=== PATIENT | female | born 1995 | race Caucasian/White ===

== ENCOUNTER → 2020-06-05 | Outpatient (CLI) | payer BC, SELFPAY ==
[2020-06-05 09:25] VITALS: BMI 24.1
[2020-06-05 17:30] LABS: Amphetamine Urine VISTA NEGATIVE (<1000 ng/mL); Barbiturate Urine VISTA NEGATIVE (< 200 ng/mL); Benzodiazepine Urine VISTA NEGATIVE (< 200 ng/mL); Cocaine Urine VISTA NEGATIVE (< 300 ng/mL); Ecstacy Urine VISTA NEGATIVE (< 500 ng/mL); Methadone Urine VISTA NEGATIVE (< 300 ng/mL); PCP Urine VISTA NEGATIVE (< 25 ng/mL); THC Urine VISTA NEGATIVE (< 50 ng/mL); Vista UDS pH Range 6
[2020-06-09 20:07] LABS: Chlamydia By Nucleic Acid AMP Negative (Negative)
[2020-06-09 20:13] LABS: Gonococcus By Nucleic Acid AMP Negative (Negative)
== END | disposition home or self-care (01) ==
LOC: LABSPEC 17:02
PROVIDERS: PCP Internal Medicine; Visit Provider Obstetrics & Gynecology
DX: Z34.90 Encounter for supervision of normal pregnancy, unspecified, unspecified trimester (principal)
CPT/HCPCS: 80307; 87086; 87491; 87591

== ENCOUNTER → 2020-06-10 | Outpatient (CLI) | payer BC, SELFPAY ==
[2020-06-05 09:25] VITALS: BMI 24.1
[2020-06-10 16:07] LABS: Absolute Neutrophil Count 5.2 X10^3/uL (2.0-7.7); Basophil# 0.02 X10^3/uL; Basophil% 0.3 % (0-1); Eosinophil# 0.12 X10^3/uL; Eosinophils% 1.6 % (0-5); Hemoglobin 12.5 g/dL (12.0-15.0); Lymphocyte % 20.4 % (19-41); Mean Corp Hgb Conc 32.9 g/dL (32-36); Mean Corpuscular Hgb 30.3 pg (27.0-32.0); Mean Platelet Vol. 9.5 fl (6.2-12.0); Monocyte% 6.8 % (0-10); NRBC Flagged by Analyzer 0 % (0-5); Neutrophil # 5.18 X10^3/uL (2.7-7.7); Neutrophil % 70.6 % (47-70); Platelet Count 299 K/mm3 (150-450); Red Blood Count 4.13 M/mm3 (4.2-5.4); White Blood Count 7.3 K/mm3 (4.4-11.0)
[2020-06-10 17:04] LABS: NATERA MAILED SPECIMEN
[2020-06-11 08:54] LABS: HIV - WCH Non-Reactive (Nonreactive); Hepatitis B Surface Antigen Non-Reactive (Nonreactive); Hepatitis C Antibody Non-Reactive (Nonreactive); Rubella IgG 74.5 IU/mL
[2020-06-12 03:03] LABS: Rapid Plasmin Reagin (RPR) NONREACTIVE (NONREACTIVE)
== END | disposition home or self-care (01) ==
PROVIDERS: PCP Internal Medicine; Referring Provider Obstetrics & Gynecology; Visit Provider Obstetrics & Gynecology
DX: Z34.81 Encounter for supervision of other normal pregnancy, first trimester (principal); Z31.430 Encounter of female for testing for genetic disease carrier status for procreative management
CPT/HCPCS: 36415; 85025; 86592; 86703; 86762; 86803; 86850; 86900; 86901; 87340

== ENCOUNTER → 2020-10-22 16:11 | Outpatient (CLI) | payer BC, SELFPAY ==
[2020-10-22 15:55] VITALS: BMI 27.6
[2020-10-22 16:54] LABS: Absolute Lymphocyte Count 1.53 X10^3/uL (0.83-4.51); Absolute Neutrophil Count 7.9 X10^3/uL (2.0-7.7); Basophil# 0.03 X10^3/uL; Basophil% 0.3 % (0-1); Eosinophil# 0.09 X10^3/uL; Eosinophils% 0.9 % (0-5); Hematocrit 35.1 % (37-47); Hemoglobin 11.1 g/dL (12.0-15.0); Lymphocyte # 1.53 X10^3/ul (4.0); Lymphocyte % 14.9 % (19-41); Mean Corp Hgb Conc 31.6 g/dL (32-36); Mean Corpuscular Hgb 29.8 pg (27.0-32.0); Mean Corpuscular Volume 94.4 fL (81-99); Mean Platelet Vol. 8.7 fl (6.2-12.0); Monocyte# 0.68 X10^3/uL; Monocyte% 6.6 % (0-10); NRBC Flagged by Analyzer 0 % (0-5); Neutrophil # 7.91 X10^3/uL (2.7-7.7); Neutrophil % 76.9 % (47-70); Platelet Count 293 K/mm3 (150-450); RBC Distribution Width SD 44.2 fl (35.1-43.9); Red Blood Count 3.72 M/mm3 (4.2-5.4); White Blood Count 10.3 K/mm3 (4.4-11.0)
[2020-10-22 17:16] LABS: Glucose Challenge Gest 1H 50g 129 mg/dL (70-140)
== END ==
PROVIDERS: PCP Internal Medicine; Referring Provider Obstetrics & Gynecology; Visit Provider Obstetrics & Gynecology
DX: Z34.90 Encounter for supervision of normal pregnancy, unspecified, unspecified trimester (principal)
CPT/HCPCS: 36415; 82950; 85025

== ENCOUNTER → 2020-12-11 | Outpatient (CLI) | payer BC, SELFPAY ==
[2020-12-11 15:51] VITALS: BMI 28.9
== END | disposition home or self-care (01) ==
LOC: LABSPEC 16:42
PROVIDERS: PCP Internal Medicine; Visit Provider Obstetrics & Gynecology
DX: Z34.90 Encounter for supervision of normal pregnancy, unspecified, unspecified trimester (principal)
CPT/HCPCS: 87081

== ENCOUNTER 2020-12-28 05:20 | Inpatient (IN) | payer BC, SELFPAY ==
[2020-12-26 16:02] VITALS: BMI 28.9
[2020-12-28] VITALS (17 sets, daily range): BP systolic 103–118; BP diastolic 51–68; PULSE 57–182; RESP 14–18; TEMP 36.4–36.8; O2SAT 89–100; BMI 28.9
[2020-12-28] MEDS: Oxytocin 10 UNITS/ML Vial IM (05:47)
--- NOTE | 2020-12-28 05:59 | HP.PCM.OB_ITS ---
HPI - General General Date of Admission: 12/28/20 HPI Narrative DELISA NGUYEN, is a 25 F G3, P2 at 39 weeks gestation who presents in active labor. Patient was completely dilated on arrival [facility] Medical History (Updated 12/28/20 @ 06:[address] Nkechi Delgado MD) No significant medical problems Home Medications multivitamin no.47-iron fum 27 mg-folate no.1 1 mg-dha 300 mg capsule cap PO 05/27/20 [History Last Taken Unknown] Allergy/AdvReac Type Severity Reaction Status Date / Time No Known Allergies Allergy Verified 12/26/20 16:01 Family History Grandfather Colon cancer Surgical History S/P appendectomy Social History adopted: No household members: family housing: house number of children: 2 current occupational status: employed current occupation: [email or web address] pets and animals: Yes Smoking Status: Never smoker second hand exposure: No alcohol intake: current details: not while substance use type: does not use seatbelt use: always do you feel safe at home: Yes additional social history: - Wyatt Mcdaniel History 3 Elective abortions Hx Para 2 Spontaneous abortions Hx # Term Pregnancies Ectopic pregnancies Hx # Pregnancies Multiple births # of living children 2 Past Pregnancies Del. Date Name GA/Weeks Outcome Route Bth Weight Gen Labor Lgth Anesthesia Del Locatn Provider FOB 05/27/16 Thomas 39 live - full term 8lbs 9ozz Male over 24 hours epidural [facility] Wyatt 03/10/18 Bety 39 live - full term 7lbs 4oz Female 2 ho urs epidural [facility] Delivery Date: 05/27/16 no complications Saida Castorena Delivery Date: 03/10/18 no complications Saida Castorena Visit Details Expected Delivery Route/Plan Labor Preferences- CB/BF classes: no labor support person: Wyatt labor intervention preferences: shower, tub, ok with baby meds pain management options preferred: desires natural labor (had epidural with last 2 but did not work with last labor) cut cord/dad catch: cord, patient possibly wants to help : yes PP control planned: no discussed possible routes of delivery and associated risks: discussed possible delivery modalities and possible indications for each including R/B/A of , VAVD, FAVD, and CS. questions answered. special requests: no episiotomy unless absolutely necessary (had with last 2 deliveries) Plans flu vaccine: declined tdap vaccine: [] rhogam: [] LARC form signed: [] Problem list reviewed and updated with the most current plan of care details and appropriate orders placed. Relevant counseling for the gestational age provided. Continue routine care and follow up unless otherwise noted in visit notes/problem list details OB Flowsheet Initial Weight: 125 lb Date -?-?-?-?-?-?-?-?-?-?-?-?- EGA Weight BP Urine Prot -?-?-?-?-?-?-?-?-?-?-?-?- Glucose FHR FuHt Pres Dilation -?-?-?-?-?-?-?-?-?-?-?-?- Effaced St Visit Note 06/05/20 -?-?-?-?-?-?-?-?-?-?-?-?- 9w 4d 128 lb (+3 lb) 120/70 -?-?-?-?-?-?-?-?-?-?-?-?- -?-?-?-?-?-?-?-?-?-?-?-?- SM- CRL 2.5cm fh t 175 cons with lmp 07/02/20 -?-?-?-?-?-?-?-?-?-?-?-?- 13w 3d 129 lb 8 oz (+4 lb 8 oz) 118/60 Negative -?-?-?-?-?-?-?-?-?-?-?-?- Negative 150 -?-?-?-?-?-?-?-?-?-?-?-?- GP - no cramping or bleeding. Feeling flutters of movement. Anatomy scan ordered. Reviewed genetic testing - normal. 07/30/20 -?-?-?-?-?-?-?-?-?-?-?-?- 17w 3d 134 lb 8 oz (+9 lb 8 oz) 118/60 Negative -?-?-?-?-?-?-?-?-?-?-?-?- Negative 140 -?-?-?-?-?-?-?-?-?-?-?-?- GP - no cramping , LOF, VB. +FM. Anatomy scan scheduled. 08/29/20 -?-?-?-?-?-?-?-?-?-?-?-?- 21w 5d 139 lb 8 oz (+14 lb 8 oz) 110/60 Negative -?-?-?-?-?-?-?-?-?-?-?-?- Negative 135 21 -?-?-?-?-?-?-?-?-?-?-?-?- GP - No LOF, VB, DFM, ctx. Had appendectomy done in [place] a couple weeks ago. Recovery going well. Anatomy scan reviewed and normal. 10/09/20 -?-?-?-?-?-?-?-?-?-?-?-?- 27w 4d 147 lb 6 oz (+22 lb 6 oz) 130/68 Negative -?-?-?-?-?-?-?-?-?-?-?-?- Negative 140 28 -?-?-?-?-?-?-?-?-?-?-?-?- SM- no vb lof go od fm no regular ctx 10/22/20 -?-?-?-?-?-?-?-?-?-?-?-?- 29w 3d 146 lb 4 oz (+21 lb 4 oz) 130/76 Negative -?-?-?-?-?-?-?-?-?-?-?-?- Negative 135 29 -?-?-?-?-?-?-?-?-?-?-?-?- GP - no LOF, VB, DFM, ctx. Getting labs drawn after visit. 11/07/20 -?-?-?-?-?-?-?-?-?-?-?-?- 31w 5d 149 lb 6 oz (+24 lb 6 oz) 120/60 Negative -?-?-?-?-?-?-?-?-?-?-?-?- Negative 130 31 -?-?-?-?-?-?-?-?-?-?-?-?- GP - no LOF, VB, DFM, ctx. Getting chicken coop ready this weekend because she is getting chicks next week. 11/20/20 -?-?-?--?-?-?-?-?-?-?-?-?- 33w 4d 150 lb 2 oz (+25 lb 2 oz) 120/70 Negative -?-?-?-?-?-?-?-?-?-?-?-?- Negative 120 33 -?-?-?-?-?-?-?-?-?-?-?-?- GP - no LOF, VB, DFM, ctx. Discussed labor preferences and routes of delivery. 12/05/20 -?-?-?-?-?-?-?-?-?-?-?-?- 35w 5d 150 lb 6 oz (+25 lb 6 oz) 118/74 Negative -?-?-?-?-?-?-?-?-?-?-?-?- Negative 130 35 -?-?-?-?-?-?-?-?-?-?-?-?- GP - no LOF, VB, DFM, ctx. Denies complaints. 12/11/20 -?-?-?-?-?-?-?-?-?-?-?-?- 36w 4d 153 lb (+28 lb) 132/66 Negative -?-?-?-?-?-?-?-?-?-?-?-?- Negative 130 36 Cephalic -?-?-?-?-?-?-?-?-?-?-?-?- SM- no vb lof go od fm n oregular ctx gbs collected 12/19/20 -?-?-?-?-?-?-?-?-?-?-?-?- 37w 5d 153 lb (+28 lb) 98/64 Negative -?-?-?-?-?-?-?-?-?-?-?-?- Negative 120 30 Cephalic 1 -?-?-?-?-?-?-?-?-?-?-?-?- 50 -2 GP - no LO F, VB, DFM, ctx. Denies complaints. 12/26/20 -?-?-?-?-?-?-?-?-?-?-?-?- 38w 5d 153 lb 2 oz (+28 lb 2 oz) 130/78 Negative -?-?-?-?-?-?-?-?-?-?-?-?- Negative 125 38 Cephalic 1 -?-?-?-?-?-?-?-?-?-?-?-?- 50 -2 GP - no LO F, VB, dFM, ctx. Sister is graduating with Masters in Social work this weekend and they are having a alliance party. 12/28/20 -?-?-?-?-?-?-?-?-?-?-?-?- 39w 0d 153 lb (+28 lb) 118/56 111/66 -?-?-?-?-?-?-?-?-?-?-?-?- -?-?-?-?-?-?-?-?-?-?-?-?- GP -admitted in active labor NST FHR Rate Baby A Baseline: 120 Variability:: Moderate Accelerations:: 15 x 15 Decelerations:: Variable FHR Category:: Category II Uterine Activity:: q2 min ROS Eyes Eyes: Reports systems reviewed and no addt'l complaints, except as documented ENT HEENT: Reports systems reviewed and no addt'l complaints, except as documented Cardiovascular Cardiovascular: Reports systems reviewed and no addt'l complaints, except as documented Respiratory/Chest Respiratory/Chest: Reports systems reviewed and no addt'l complaints, except as documented Gastrointestinal Gastrointestinal: Reports systems reviewed and no addt'l complaints, except as documented Genitourinary Genitourinary: Reports systems reviewed and no addt'l complaints, except as documented Musculoskeletal Musculoskeletal: Reports systems reviewed and no addt'l complaints, except as documented Integumentary Integumentary: Reports systems reviewed and no addt'l complaints, except as documented Neurologic Neurologic: Reports systems reviewed and no addt'l complaints, except as documented Psychiatric Psychiatric: Reports systems reviewed and no addt'l complaints, except as documented Endocrine Endocrinology: Reports systems reviewed and no addt'l complaints, except as documented Hematologic/Lymphatic Hematologic/Lymphatic: Reports systems reviewed and no addt'l complaints, except as documented Allergic/Immunologic Allergic/Immunologic: Reports systems reviewed and no addt'l complaints, except as documented Vital Signs Vital Signs Vital Signs: 12/28/20 05:31 12/28/20 05:45 Pulse Rate 106 H 100 Blood Pressure 118/56 L BP Systolic 118 BP Diastolic 56 Pulse Ox 99 Physical Exam Const alert, oriented x3, no apparent distress, average body habitus, healthy appearing and well nourished HEENT normocephalic and moist oral mucous membranes Head and Scalp: atraumatic Eyes PERRL and EOMs intact bilaterally Neck full ROM Resp normal respiratory effort, no retractions and no use of accessory muscles Cardio regular rate and regular rhythm GI soft to palpation, non-tender and non-distended OB / External & Speculum: external exam normal, and vaginal bleeding; Negative for bleeding Manual OB Exam: dilated 10, effaced 100 and station +2 Extremity normal to inspection and full ROM Skin no rashes or lesions noted Neuro no focal motor deficits and no sensory deficits noted Psych mental status grossly normal, affect normal, speech normal and activity/motor behavior normal Assessment & Plan (1) Active labor: PLAN: Patient presents IAL, plan expectant management for , pitocin if needed. Pain management: complete on dilation - unable to receive epidural. GBS .negative Management of any complications: none I have reviewed the [facility] and made any clinically relevant updates. (2) Supervision of other normal : COMMENT: PRR JAIME 01/04/21 Girl! PC: Bety Thomas Spouse: Wyatt (3) : QUALIFIERS: Weeks of gestation: 38 weeks Qualified Code(s): Z3A.38 - 38 weeks gestation of COMMENT: genetic- low risk female and carrier- neg . Declined NTD, anatomy nl
--- NOTE | 2020-12-28 06:04 | EX.PCM.OBRPT ---
Assessment & Plan (1) Active labor: (2) Supervision of other normal : COMMENT: PRR JAIME 01/04/21 Girl! PC: Bety Thomas Spouse: Wyatt (3) : QUALIFIERS: Weeks of gestation: 38 weeks Qualified Code(s): Z3A.38 - 38 weeks gestation of COMMENT: genetic- low risk female and carrier- neg . Declined NTD, anatomy nl (4) (spontaneous vaginal delivery): Maternal Data Information JAIME Calculator Estimated Delivery Date Method Current WG Current Estimate 01/04/21 LMP (Certain) 39w 0d Other Estimates 01/05/21 Ultrasound #1 38w 6d Vaginal Delivery Maternal Presentation Maternal Presentation: Active Labor Maternal Presentation: 25-year-old G3, P2 at 39 weeks gestation admitted in active labor. Patient presented completely dilated feeling the urge to push. Operative Information Date of Procedure: 12/28/20 Pre-Operative Diagnosis: Term , active labor, precipitous delivery Post-Operative Diagnosis: Same Surgery / Procedure Performed: Spontaneous Vaginal Delivery Type of Anesthesia: Local with 1% Lidocaine Estimated Blood Loss: 250 Findings Description of Procedure: Patient began pushing and delivered the head in the DAGOBERTO presentation. The head was delivered atraumatically and a loose cord was noted around the body and delivered through. The anterior and posterior shoulders delivered without complication followed by the rest of the and the infant was placed on the maternal abdomen. Delayed cord clamping was employed for approximately 60 seconds. Cord was clamped and cut and gentle traction was applied to the cord and the placenta delivered spontaneously immediately following it was noted to be intact with three-vessel cord. The perineum and vagina were inspected and a midline second-degree perineal laceration was noted and repaired in the standard fashion using 3-0 Vicryl Rapide suture. EBL was 250 cc. Patient and infant tolerated delivery well. Presentation: Vertex and DAGOBERTO Amniotic Membrane Rupture Type: Spontaneous Amniotic Fluid Description: Clear Cord Vessel Description: 3 Vessels Cord Entanglement: None A Gender: Female (1 minute): 9 (5 minute): 9 Delayed Cord Clamping: Yes Post Vaginal Delivery Medications Given After Delivery: - (IM pitocin) Episiotomy Description: None Laceration: Midline, Perineal Extension/lac and 2nd degree Complication Complications: None Admit VTE Documentation VTE Present on Admission: No VTE Mechan Device Prophylaxis: SCD's VTE Pharm Prophylaxis Ordered: No Multi Select Codes Urinary/Genital Urinary/Genital CPT Codes: 49527 Vaginal Delivery [facility]
[2020-12-28] MEDS: Oxytocin 30 units/NS 500 ml 30 UNITS/500 ML IV.SOLN 334 UNITS IV (06:09)
[2020-12-28 06:21] LABS: Absolute Lymphocyte Count 1.04 X10^3/uL (0.83-4.51); Absolute Neutrophil Count 11.9 X10^3/uL (2.0-7.7); Basophil# 0.02 X10^3/uL; Basophil% 0.1 % (0-1); Eosinophil# 0.02 X10^3/uL; Eosinophils% 0.1 % (0-5); Hematocrit 36.2 % (37-47); Hemoglobin 11.3 g/dL (12.0-15.0); Lymphocyte # 1.04 X10^3/ul (0.83-4.51); Lymphocyte % 7.7 % (19-41); Mean Corp Hgb Conc 31.2 g/dL (32-36); Mean Corpuscular Hgb 27.5 pg (27.0-32.0); Mean Corpuscular Volume 88.1 fL (81-99); Mean Platelet Vol. 9.1 fl (6.2-12.0); Monocyte# 0.48 X10^3/uL; Monocyte% 3.5 % (0-10); NRBC Flagged by Analyzer 0 % (0-5); Neutrophil # 11.91 X10^3/uL (2.7-7.7); Platelet Count 281 K/mm3 (150-450); RBC Distribution Width CV 13.4 % (11.6-14.6); RBC Distribution Width SD 43.5 fl (35.1-43.9); Red Blood Count 4.11 M/mm3 (4.2-5.4); White Blood Count 13.6 K/mm3 (4.4-11.0)
[2020-12-28] MEDS: Naproxen 250 MG Tablet 500 MG PO ×3 (06:52→23:35)
[2020-12-29 04:07] VITALS: BP 112/55; PULSE 76; RESP 16; TEMP 36.6; O2SAT 98
[2020-12-29 07:24] VITALS: BP 101/68; PULSE 81; RESP 16; TEMP 36.3; O2SAT 97
--- NOTE | 2020-12-29 08:09 | PCM.PN.OB ---
Subjective Subjective: Patient doing well without complaints. Tolerating PO. Ambulating and voiding without difficulty. Breast feeding well. Denies chest pain, shortness of breath, calf pain/swelling, fevers, chills, lightheadedness. Objective Data Objective Data Vital Signs: Vital Signs Temp Pulse Resp BP Pulse Ox 97.3 F L 81 16 101/68 97 12/29/20 07:24 12/29/20 07:24 12/29/20 07:24 12/29/20 07:24 12/29/20 07:24 Oxygen Delivery Method Room Air Weight: 153 lb Body Mass Index (BMI) 28.9 Intake & Output: Intake and Output for Last 24 Hours 12/27/20 12/28/20 12/29/20 23:59 23:59 23:59 Intake Total 500.00 / 500.00 Output Total 250 / 250 Balance 250.00 / 250.00 Lab / Micro Data Result Diagrams: 12/28/20 06:07 ROS Constitutional Constitutional: Denies fever(s) Cardiovascular Cardiovascular: Denies chest pain, dyspnea or lightheadedness Gastrointestinal Gastrointestinal: Reports abdominal pain; Denies constipation or diarrhea Neurologic Neurologic: Denies dizziness or headache(s) Physical Exam Const alert, oriented x3, no apparent distress, average body habitus, healthy appearing and well nourished HEENT normocephalic Head and Scalp: atraumatic Eyes PERRL and EOMs intact bilaterally Neck full ROM Lymph Lymphatic: no lymphadenopathy noted Resp normal respiratory effort, no retractions and no use of accessory muscles Cardio regular rate GI soft to palpation, non-tender and non-distended Palpation: other Other Details: fundus firm Extremity normal to inspection and no clubbing, cyanosis or edema Skin no rashes or lesions noted Neuro no focal motor deficits and no sensory deficits noted Psych mental status grossly normal, affect normal and speech normal Assessment & Plan (1) (spontaneous vaginal delivery): PLAN: s/p PPD # 1 1. routine post delivery care 2. breast feeding- support given 3. rh positive 4. rubella immune
--- NOTE | 2020-12-29 08:10 | PCM.DC ---
Discharge Instructions Diet Discharge Diet: No restrictions Activity Discharge Activity: Return to Normal Activity, May not drive while taking narcotic pain medications. and May Shower May resume sexual activity in: 4-6 weeks Dressing / Incision Call your doctor if your incision/area has: Continuous Slow Oozing, Sudden Increased Bleeding, Increased Pain/ Swelling, Increased Redness and Foul Smelling Discharge Follow Up Care Please Follow Up With: Nkechi Delgado MD When: Call to make an appointment with your doctor in 6 weeks. Test Results: Test results from this visit will be discussed in further detail at your follow-up appointment, if applicable. Discharge Plan Admission Admit Date/Time: 12/28/20 05:20 Attending Provider: Nkechi Delgado Primary Care Provider: Martinez Cox Discharge Orders/Prescriptions Prescriptions: New acetaminophen 500 mg Tablet 1,000 mg PO Q8H PRN PRN (Reason: Pain Score 1-3) Qty: 0 RF: 0 naproxen 250 MG tablet 250 - 500 mg PO Q8H PRN PRN (Reason: MILD PAIN) Qty: 30 RF: 1 Continued PNV-DHA 27 mg iron-1 mg -300 mg capsule 1 cap PO DAILY RF: 0 Referrals / Follow Up: Martinez Cox MD [Primary Care Provider] - Disposition Disposition (needs filled in before D/C Order can be placed): Home, self care
== END 2020-12-29 11:05 | disposition home or self-care (01) | DRG 807 ==
PROVIDERS: Admitting Provider Obstetrics & Gynecology; PCP Internal Medicine; Visit Provider Obstetrics & Gynecology
DX: O69.81X0 Labor and delivery complicated by cord around neck, without compression, not applicable or unspecified (principal); Z37.0 Single live birth; O70.1 Second degree perineal laceration during delivery; Z3A.39 39 weeks gestation of pregnancy
CPT/HCPCS: 59050; 85025; 86850; 86900; 86901; 99218; G0378

== ENCOUNTER → 2022-04-21 | Outpatient (CLI) | payer SELFPAY ==
[2022-04-21 16:21] LABS: Amphetamine Urine VISTA NEGATIVE (<1000 ng/mL); Barbiturate Urine VISTA NEGATIVE (< 200 ng/mL); Benzodiazepine Urine VISTA NEGATIVE (< 200 ng/mL); Cocaine Urine VISTA NEGATIVE (< 300 ng/mL); Ecstacy Urine VISTA NEGATIVE (< 500 ng/mL); Methadone Urine VISTA NEGATIVE (< 300 ng/mL); PCP Urine VISTA NEGATIVE (< 25 ng/mL); THC Urine VISTA NEGATIVE (< 50 ng/mL); Vista UDS pH Range 5
[2022-04-23 22:06] LABS: Chlamydia By Nucleic Acid AMP Negative (Negative)
[2022-04-25 14:22] LABS: Gonococcus By Nucleic Acid AMP Negative (Negative)
== END | disposition home or self-care (01) ==
LOC: LABSPEC 15:38
PROVIDERS: PCP Internal Medicine; Visit Provider Obstetrics & Gynecology
DX: Z34.90 Encounter for supervision of normal pregnancy, unspecified, unspecified trimester (principal)
CPT/HCPCS: 80307; 87086; 87088; 87491; 87591

== ENCOUNTER → 2022-06-14 | Outpatient (CLI) | payer SELFPAY ==
--- NOTE | 2022-06-14 12:28 | US_ITS ---
STUDY: SECOND AND THIRD TRIMESTER OBSTETRICAL ULTRASOUND REASON FOR EXAM: Female, 27 years old anatomy scan LMP: 02/07/2022. TECHNIQUE: Transabdominal and Transvaginal TECHNICAL QUALITY: Adequate. PRIOR ULTRASOUND: None. FINDINGS: There is a single intrauterine fetus. The fetus is in a breech presentation. There is demonstrated cardiac activity with a heart rate of 141 bpm. There is a normal amniotic fluid volume. The largest amniotic fluid pocket measures 5.2 cm x 4.1 cm. The amniotic fluid index (ALEXIS) is within normal limits. The placenta is posterior in location and is not low lying. There are Grade 0 placental changes. The cervix measures 3.3 cm in length. The bilateral adnexal regions are normal. BIOMETRY: BPD: 3.68 cm: 17 weeks, 2 days HC: 13.89 cm: 17 weeks, 2 days AC: 12.4 cm: 18 weeks, 0 days FL: 2.35 cm: 17 weeks, 0 days CI: 77% FL/BPD: 64% FL/HC: FL/AC: 19% HC/AC: 1.12 age by current US: 17 weeks, 2 days. JAIME by current US: 11/20/2022. Estimated weight: 199 grams, +/- 3 grams, 15 %. Age by LMP: 18 weeks, 1 days. JAIME by LMP: 11/14/2022. ANATOMY: Gender: Female Cranium: Normal lateral ventricles. Normal choroid plexus. Normal cerebellum. Normal cisterna magna. Normal face, nose and lips. Chest: Normal 4-chamber heart. Abdomen/Pelvis: Normal diaphragm. Normal stomach. Normal abdominal wall. Normal cord insertion. Normal 3 vessel cord. Normal kidneys. Normal bladder. Spine: Normal cervical spine. Normal thoracic spine. Normal lumbar spine. Normal sacrum. Extremities: Normal bilateral upper extremities. Normal bilateral lower extremities. IMPRESSION: Single live uterine gestation with a mean gestational age of 17 weeks and 2 days. Electronically Signed: Won Hartmann MD at 15:28 EDT , STUDY: FIRST TRIMESTER OBSTETRICAL ULTRASOUND REASON FOR EXAM: Female, 27 years old . Cervical length measurement. LMP: 02/07/2022 TECHNIQUE: Transvaginal TECHNICAL QUALITY: Adequate. PRIOR ULTRASOUND: None. FINDINGS: The cervical length measures 3.3 cm. US/OB Anatomy Scan IMPRESSION: Cervical length measures 3.3 cm. Electronically Signed: Won Hartmann MD at 15:29 EDT ,
== END | disposition home or self-care (01) ==
PROVIDERS: PCP Internal Medicine; Visit Provider Obstetrics & Gynecology
DX: Z34.92 Encounter for supervision of normal pregnancy, unspecified, second trimester (principal); Z3A.17 17 weeks gestation of pregnancy
CPT/HCPCS: 76805; 76817

== ENCOUNTER → 2022-10-21 | Outpatient (CLI) | payer SELFPAY | END | disposition home or self-care (01) | LOC: LABSPEC 14:13 | PROVIDERS: PCP Internal Medicine; Referring Provider Obstetrics & Gynecology; Visit Provider Obstetrics & Gynecology | DX: Z34.90 Encounter for supervision of normal pregnancy, unspecified, unspecified trimester (principal) | CPT/HCPCS: 87081 ==

== ENCOUNTER 2022-11-16 02:15 | Inpatient (IN) | payer SELFPAY ==
[2022-11-16] VITALS (21 sets, daily range): BP systolic 87–128; BP diastolic 53–70; PULSE 68–113; RESP 16; TEMP 36.6–37.4; O2SAT 98; BMI 28.1
[2022-11-16] MEDS: 0.9% Saline Lock 10 ML Syringe IV (02:22)
[2022-11-16 02:47] LABS: Absolute Lymphocyte Count 3.29 X10^3/uL (0.83-4.51); Absolute Neutrophil Count 7.5 X10^3/uL (2.0-7.7); Basophil# 0.05 X10^3/uL; Basophil% 0.4 % (0-1); Eosinophil# 0.05 X10^3/uL; Eosinophils% 0.4 % (0-5); Hematocrit 33.7 % (37-47); Hemoglobin 9.9 g/dL (12.0-15.0); Lymphocyte # 3.29 X10^3/ul (0.83-4.51); Lymphocyte % 28.6 % (19-41); Mean Corp Hgb Conc 29.4 g/dL (32-36); Mean Corpuscular Hgb 24.4 pg (27.0-32.0); Mean Corpuscular Volume 83.2 fL (81-99); Monocyte# 0.64 X10^3/uL; Monocyte% 5.6 % (0-10); NRBC Flagged by Analyzer 0 % (0-5); Neutrophil # 7.45 X10^3/uL (2.7-7.7); Neutrophil % 64.7 % (47-70); Platelet Count 285 K/mm3 (150-450); RBC Distribution Width CV 14.6 % (11.6-14.6); RBC Distribution Width SD 43.9 fl (35.1-43.9); Red Blood Count 4.05 M/mm3 (4.2-5.4); White Blood Count 11.5 K/mm3 (4.4-11.0)
--- NOTE | 2022-11-16 02:48 | HP.PCM.OB_ITS ---
HPI - General General Date of Admission: 11/16/22 HPI Narrative DELISA NGUYEN, is a 27 F who presents IAL 7-8 cm no vb lof admits good fm with regular ctx Maternal Data Information JAIME Calculator Estimated Delivery Date Method Current WG Current Estimate 11/14/22 LMP (Certain) 40w 2d PFSH PFSH Medical History No significant medical problems Superficial varicosities Home Medications multivitamin no.47-iron fum 27 mg-folate no.1 1 mg-dha 300 mg capsule (PNV-DHA) 1 cap PO DAILY 05/27/20 [History Last Taken 12/27/20 15:00] Allergy/AdvReac Type Severity Reaction Status Date / Time No Known Allergies Allergy Verified 11/16/22 02:21 Family History Grandfather Colon cancer Surgical History S/P appendectomy Social History adopted: No household members: spouse and children housing: house number of children: 3 current occupational status: employed 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 pets and animals: Yes pets and animals: dog(s) history of recent travel: Yes ([place]) out of state: Yes out of country: No sexually active: Yes Smoking Status: Never smoker second hand exposure: No alcohol intake: former details: not while substance use type: does not use well-balanced diet: daily or most days caffeine: No eating out: rarely or never during the past year weight has: remained stable what type of physical activity do you participate in: other details: JERRELL frequency: 3-4 times per week duration: 15-30 minutes/day jose/yarsani: Worship seatbelt use: always do you feel safe at home: Yes additional social history: - [place] Self Employed History 4 Elective abortions Hx Para 3 Spontaneous abortions Hx # Term Pregnancies 3 Ectopic pregnancies Hx # Pregnancies Multiple births # of living children 3 Past Pregnancies Del. Date Name GA/Weeks Outcome Route Bth Weight Gen Labor Lgth Anesthesia Del Locatn Provider FOB 05/27/16 Thomas 39 live - full term 8lbs 9ozz Male over 24 hours epidural [facility] Wyatt 03/10/18 Bety 39 live - full term 7lbs 4oz Female 2 ho urs epidural [facility] Wyatt 12/29/20 Jarrod 39 live - full term Female [facility] Danny Delivery Date: 05/27/16 Last Updated by: Saida Castorena no complications Delivery Date: 03/10/18 Last Updated by: Saida Castorena no complications Delivery Date: 12/29/20 Last Updated by: Cheyenne Cox admitted in active labor, precipitous delivery Visit Details Expected Delivery Route/Plan Labor Preferences- CB/BF classes: no labor support person: Wyatt labor intervention preferences: [] pain management options preferred: limited, natural cut cord/dad catch: cord : yes PP control planned: condoms discussed possible routes of delivery and associated risks: [] special requests: [] Plans Covid status: Flu vaccine: declines Tdap vaccine: declines Rhogam: [n/a A POSITIVE] LARC form signed: yes Problem list reviewed and updated with the most current plan of care details and appropriate orders placed. Relevant counseling for the gestational age provided. Continue routine care and follow up unless otherwise noted in visit notes/problem list details OB Flowsheet Initial Weight: Not Recorded Date -?-?-?-?-?-?-?-?-?-?-?-?- EGA Weight BP Urine Prot -?-?-?-?-?-?-?-?-?-?-?-?- Glucose FHR FuHt Pres Dilation -?-?-?-?-?-?-?-?-?-?-?-?- Effaced St Visit Note 04/21/22 -?-?-?-?-?--?-?-?-?-?-?-?- 10w 3d 127 lb 120/78 -?-?-?-?-?-?-?-?-?-?-?-?- 168 -?-?-?-?-?-?-?-?-?-?-?-?- JV- CRL consiste nt with LMP. Pt states that she will not be doing any ultrasounds or glucose challenge. She consented to the GC/CT and will decide about labs. we discussed that she will at least need to do fingerstick tests at 28 weeks for a week or more. 05/20/22 -?-?-?-?-?-?-?-?-?-?-?-?- 14w 4d 129 lb 128/67 -?-?-?-?-?-?-?-?-?-?-?-?- 155 -?-?-?-?-?-?-?-?-?-?-?-?- SM- no vb crampi francisco discussed get labs drawn and will do anatomy us at [facility] 06/14/22 -?-?-?-?-?-?-?-?-?-?-?-?- 18w 1d 130 lb 6 oz 127/68 -?-?-?-?-?-?-?-?-?-?-?-?- 150 -?-?-?-?-?-?-?-?-?-?-?-?- LC- anatomy comp leted today, awaiting report. no vb,cramping. declines afp. LC- anatomy completed today, awaiting report. no vb,cramping. declines afp and flu vaccine 08/11/22 -?-?-?-?-?-?-?-?-?-?-?-?- 26w 3d 132 lb 130/70 Negative -?-?-?-?-?-?-?-?-?-?-?-?- Negative 156 26 -?-?-?-?-?-?-?-?-?-?-?-?- JV- no complaint s today other than blurring in one eye occasionally. GCT when comes in for next visit JV- no complaints today othe r than blurring in one eye occasionally. GCT when comes in for next visit. need to update urine results in chart. 09/08/22 -?-?-?-?-?-?-?-?-?-?-?-?- 30w 3d 145 lb 6 oz 110/68 Nega tive -?-?-?-?-?-?-?-?-?-?-?-?- Negative 151 30 -?-?-?-?-?-?-?-?-?-?-?-?- MH-no VB, LOF. G ood FM. Still declines all labs. Discussed and encouraged. 10/08/22 -?-?-?-?-?-?-?-?-?-?-?-?- 34w 5d 149 lb 6 oz 106/69 Nega tive -?-?-?-?-?-?-?-?-?-?-?-?- Negative 124 35 Cephalic -?-?-?-?-?-?-?-?-?-?-?-?- KW-no VB, lof. G ood fm. Reports some jane ortez contractions. encouraged rest and oral hydration. Plans to obtain labs when presents to L&D. 10/21/22 -?-?-?-?-?-?-?-?-?-?-?-?- 36w 4d 147 lb 8 oz 147 lb 8 oz 110/64 Negative -?-?-?-?-?-?-?-?-?-?-?-?- Negative 130 36 Cephalic 1 -?-?-?-?-?-?-?-?-?-?-?-?- SM- no vb lof go od fm no regular ctx gbs done 10/29/22 -?-?-?-?-?-?-?-?-?-?-?-?- 37w 5d 148 lb 2 oz 120/70 Nega tive -?-?-?-?-?-?-?-?-?-?-?-?- Negative 139 37 Cephalic 1 -?-?-?-?-?-?-?-?-?-?-?-?- 30 -2 LC- no vb/ ctx/lof. good fm. labor precautions provided. 11/05/22 -?-?-?-?-?-?-?-?-?-?-?-?- 38w 5d 150 lb 4 oz 113/72 Nega tive -?-?-?-?-?-?-?-?-?-?-?-?- Negative 135 37 Cephalic 2 -?-?-?-?-?-?-?-?-?-?-?-?- 30 -1 SM- no vb lof good fm no reguar ctx 11/11/22 -?-?-?-?-?-?-?-?-?-?-?-?- 39w 4d 150 lb 120/72 Negative -?-?-?-?-?-?-?-?-?-?-?-?- Negative 145 38 Cephalic 2 .5 -?-?-?-?-?-?-?-?-?-?-?-?- 80 -1 JV- no lof , vaginal bleeding, or dec fm. wants membranes swept today 11/16/22 -?-?-?-?-?-?-?-?-?-?-?-?- 40w 2d 149 lb 3.2 oz 120/70 121/55 -?-?-?-?-?-?-?-?-?-?-?--?- -?-?-?-?-?-?-?-?-?-?-?-?- NST FHR Rate Baby A Baseline: 140 Variability:: Moderate Accelerations:: 15 x 15 Decelerations:: None NST Reactive:: Yes FHR Category:: Category I Uterine Activity:: q3-5 ROS Constitutional Constitutional: Reports systems reviewed and no addt'l complaints, except as documented ENT HEENT: Reports systems reviewed and no addt'l complaints, except as documented Cardiovascular Cardiovascular: Reports systems reviewed and no addt'l complaints, except as documented Respiratory/Chest Respiratory/Chest: Reports systems reviewed and no addt'l complaints, except as documented Gastrointestinal Gastrointestinal: Reports systems reviewed and no addt'l complaints, except as documented and nausea; Denies abdominal pain Genitourinary Genitourinary: Reports systems reviewed and no addt'l complaints, except as documented, contractions Details: present and frequency (regular ) and movement Details: present Musculoskeletal Musculoskeletal: Reports systems reviewed and no addt'l complaints, except as documented Integumentary Integumentary: Reports as per HPI Neurologic Neurologic: Reports systems reviewed and no addt'l complaints, except as documented Endocrine Endocrinology: Reports systems reviewed and no addt'l complaints, except as documented Vital Signs Vital Signs Vital Signs: 11/16/22 02:22 11/16/22 02:28 11/16/22 02:28 Temperature 98.4 F Pulse Rate 113 H Blood Pressure 120/70 BP Systolic 120 BP Diastolic 70 Weight Weight: 149 lb 3.2 oz Body Mass Index (BMI) 28.1 Physical Exam Const alert, oriented x3 and healthy appearing Constitutional Narrative: uncomfortable with contractions HEENT normocephalic and moist oral mucous membranes Head and Scalp: atraumatic Neck full ROM, no lymphadenopathy, supple and thyroid normal General: trachea midline Thyroid: thyroid normal Lymph Lymphatic: no lymphadenopathy noted Chest inspection of chest normal Resp normal respiratory effort Cardio regular rate GI normal to inspection, nondistended, normoactive bowel sounds, soft to palpation and non-tender Inspection: gravid external exam normal Bimanual Exam - Vag & Uterus: uterus non-tender Manual OB Exam: estimated gestational size appropriate, presentation cephalic, dilated, effaced and station Extremity normal to inspection General Extremity: Negative for edema Skin no rashes or lesions noted Neuro deep tendon reflexes 2+ bilaterally Motor Exam: strength 5/5 throughout and clonus absent Psych mental status grossly normal Labs Labs Labs: Blood Type A POSITIVE Antibody Screen NEGATIVE Hct 33.7 % (37-47) L Hgb 9.9 g/dL (12.0-15.0) L Obstetrics US Syphilis Total Ab Pending Rubella IgG Antibody 74.5 IU/mL Hep Bs Antigen Non-Reactive (Nonreactive) Chlamydia DNA ([facility]ACE) Negative (Negative) Neisseria gonorrhoeae DNA ([facility]ACE) Negative (Negative) HIV 1&2 Antibody Non-Reactive (Nonreactive) Glucose 1 Hr 50 gm 129 mg/dL (70-140) Rhogam given: No Assessment & Plan (1) : QUALIFIERS: Weeks of gestation: 39 weeks Qualified Code(s): Z3A.39 - 39 weeks gestation of COMMENT: GBS neg. discussed NIPT & Carrier- declines. SP- declines STD/tox until delivery. 06/15 anatomy US (2) Supervision of normal : COMMENT: SP JAIME 11/14/22 girl Bety Kaur [place]att (3) Varicose vein of leg: COMMENT: bilateral legs (4) Noncompliance with diagnostic test: COMMENT: Plans to obtain labs when presents to L&D. Discussed infant testing if results not back in time for (5) Active labor at term: PLAN: Plan Patient presents IAL, plan expectant management for , pitocin/AROM PRN if needed. Pain management: plans epidural. GBS neg. Management of any complications: none I have reviewed the [facility] and made any clinically relevant updates.
[2022-11-16 03:06] LABS: Bedside Glucose 90 mg/dL (74-106)
[2022-11-16] MEDS: Lidocaine 1% (20 ml mdv) 20 ML Vial INFILT (04:00)
[2022-11-16 04:01] LABS: Rubella IgG Reactive (Nonreactive)
[2022-11-16 04:08] LABS: HIV - WCH Non-Reactive (Nonreactive); Hepatitis B Surface Antigen Non-Reactive (Nonreactive); Hepatitis C Antibody Non-Reactive (Nonreactive); Syphilis Antibodies Non-reactive
--- NOTE | 2022-11-16 04:15 | OP.PCM_ITS ---
Assessment & Plan (1) Active labor at term: (2) Varicose vein of leg: COMMENT: bilateral legs (3) Supervision of normal : COMMENT: SP JAIME 11/14/22 girl JOE Cristal Thomaskiarra [place]att (4) : QUALIFIERS: Weeks of gestation: 39 weeks Qualified Code(s): Z3A.39 - 39 weeks gestation of COMMENT: GBS neg. discussed NIPT & Carrier- declines. SP- declines STD/tox until delivery. 06/15 nl anatomy US (5) Vaginal delivery: COMMENT: SM IAL 40 girl Maternal Data Information JAIME Calculator Estimated Delivery Date Method Current WG Current Estimate 11/14/22 LMP (Certain) 40w 2d Vaginal Delivery Operative Information Date of Procedure: 11/16/22 Pre-Operative Diagnosis: see a/p diagnoses Post-Operative Diagnosis: same Surgery / Procedure Performed: Spontaneous Vaginal Delivery Type of Anesthesia: Local with 1% Lidocaine Special Medications: none Estimated Blood Loss: 200 Fluids Replaced: crystalloid Findings Description of Procedure: Patient began pushing and delivered the head in the DAGOBERTO presentation in hands and knees. The head was delivered atraumatically.. The anterior and posterior shoulders delivered without complication followed by the rest of the and the infant was placed on the maternal abdomen. Delayed cord clamping was employed for approximately 60 seconds. Cord was clamped and cut and gentle t raction was applied to the cord and the placenta delivered spontaneously immediately following it was noted to be intact with three-vessel cord. The perineum and vagina were inspected and noted to have a first degree perineal laceration which was repaired in the usual fashion with 3-0 vicryl rapide. EBL was 200 cc. Patient and infant tolerated delivery well. Amniotic Fluid Description: Clear Placental Delivery Description: Spontaneous Placenta Disposition: [facility] Cord Vessel Description: 3 Vessels Cord Entanglement: None Delayed Cord Clamping: Yes Post Vaginal Delivery Medications Given After Delivery: IV Pitocin Episiotomy Description: None Complication Complications: None Procedures Urinary/Genital [id number]: [id number] Vaginal Delivery [facility]
--- NOTE | 2022-11-16 04:19 | DCINST_ITS ---
Discharge Instructions Diet Discharge Diet: No restrictions Activity Discharge Activity: Return to Normal Activity, May Drive, May Shower and May Take a Tub Bath (in 4 weeks) May resume sexual activity in: 6-8 weeks (after seen by OB provider) Weight Bearing Status: Full weight bearing Lifting Restrictions: none Dressing / Incision Call your doctor if you observe: Fever of 101 or Higher, Inability to urinate, Using more than 1 pad per hour (for more than 2 hours in a row or more), Shortness of breath, Dizziness, Chest pain and - (headache not controlled with tylenol, change in vision) Follow Up Care When: in 6 weeks for visit, call the office to make the appointment. If you had elevated blood pressures call the office to be seen within 1 week. Test Results: Test results from this visit will be discussed in further detail at your follow- up appointment, if applicable. Discharge Plan Admission Admit Date/Time: 11/16/22 02:15 Attending Provider: Felisha Ortiz Primary Care Provider: Martinez Cox Discharge Orders/Prescriptions Prescriptions: No Action PNV-DHA 27 mg iron-1 mg -300 mg capsule 1 cap PO DAILY Referrals / Follow Up: Martinez Cox MD [Primary Care Provider] -
[2022-11-16] MEDS: Naproxen 500 MG Tablet PO ×3 (04:50→20:19)
[2022-11-16] MEDS: Acetaminophen 500 MG Tablet 1000 MG PO ×2 (07:54→14:54)
[2022-11-17 00:22] VITALS: TEMP 36.4
[2022-11-17 00:23] VITALS: BP 101/55; PULSE 71; RESP 16; TEMP 36.4
[2022-11-17] MEDS: Acetaminophen 500 MG Tablet 1000 MG PO (02:09)
[2022-11-17 03:55] VITALS: BP 113/55; PULSE 84; RESP 16; TEMP 36.4
--- NOTE | 2022-11-17 08:03 | PCM.PN.OB ---
Subjective Subjective Patient doing well without complaints. Tolerating PO. Ambulating and voiding without difficulty. Feeding well. Denies chest pain, shortness of breath, calf pain/swelling, fevers, chills, lightheadedness. Objective Data Objective Data Vital Signs: Vital Signs Temp Pulse Resp BP Pulse Ox O2 Del Method 97.6 F L 84 16 113/55 L 98 Room Air 11/17/22 03:55 11/17/22 03:55 11/17/22 03:55 11/17/22 03:55 11/16/22 04:12 11/17/22 03:55 Oxygen Delivery Method Room Air Weight: 149 lb 3.2 oz Body Mass Index (BMI) 28.1 Intake & Output: Intake and Output for Last 24 Hours 11/15/22 11/16/22 11/17/22 23:59 23:59 23:59 Output Total 1200 / 1200 Balance -1200 / -1200 Lab / Micro Data Result Diagrams: 11/16/22 02:22 Physical Exam Const alert and oriented x3 HEENT normocephalic Eyes PERRL Neck full ROM Resp normal respiratory effort GI soft to palpation GI Narrative: FF below U Assessment & Plan (1) Vaginal delivery: COMMENT: SM IAL 40 girl PLAN: Plan s/p PPD #1 1. routine post delivery care 2. breast feeding- support given 3. rh positive 4. rubella immune
[2022-11-17 08:21] VITALS: BP 120/77; PULSE 94; RESP 18; TEMP 36.8; O2SAT 98
[2022-11-17 08:22] VITALS: BP 120/77; PULSE 94; TEMP 36.8
== END 2022-11-17 10:45 | disposition home or self-care (01) | DRG 807 ==
LOC: WPOUT 02:19 → WP 02:19
PROVIDERS: Registered Nurse; Admitting Provider Obstetrics & Gynecology; PCP Internal Medicine; Visit Provider Obstetrics & Gynecology
DX: O22.03 Varicose veins of lower extremity in pregnancy, third trimester (principal); Z37.0 Single live birth; O70.0 First degree perineal laceration during delivery; Z91.199 Patient's noncompliance with other medical treatment and regimen due to unspecified reason; Z3A.39 39 weeks gestation of pregnancy
CPT/HCPCS: 59025; 59050; 82962; 85025; 86703; 86762; 86780; 86803; 86850; 86900; 86901; 87340; 99221; A4216; G0378

== ENCOUNTER → 2024-07-13 | Outpatient (CLI) | payer SELFPAY ==
--- NOTE | 2024-07-13 10:58 | VDLE_ITS ---
Reason For Study: BLE Pain RIGHT LEFT CFV is compressible, spontaneous, phasic, CFV is compressible, spontaneous, phasic, competent and demonstrates normal competent, and demonstrates normal augmentation. augmentation. FV is compressible, spontaneous, phasic, FV is compressible, spontaneous, phasic, competent and demonstrates normal competent and demonstrates normal augmentation. augmentation. POP V is compressible, spontaneous, phasic, POP V is compressible, spontaneous, phasic, competent and demonstrates normal competent and demonstrates normal augmentation. augmentation. T/P Trunk is compressible. T/P Trunk is compressible. PTV is compressible. PTV is compressible. RT PerV is compressible. LT PerV is compressible. SFJ is INCOMPETENT and measures 0.62 cm. SFJ is INCOMPETENT and measures 0.66 cm. GSV proximal thigh measures 0.77 x 0.69 cm. GSV proximal thigh measures 0.61 x 0.59 cm. GSV at knee measures 0.76 x 0.76 cm. GSV at knee measures 0.55 x 0.56 cm. GSV INCOMPETENT throughout for greater than GSV INCOMPETENT throughout for greater than 0.5 seconds. 0.5 seconds. ASV distal calf is INCOMPETENT for greater Perforating vessel mid calf is INCOMPETENT than 0.5 seconds and measures 0.50 x 0.63 for greater than 0.5 seconds and measures cm. 0.24 cm. Vessel appears to connect with SSV at junction is competent and measures ASV/Varicosities. 0.26 cm. SSV at junction is competent and measures SSV mid calf is competent and measures 0.24 0.33 cm. x 0.26 cm. SSV mid calf is INCOMPETENT for greater than Procedure 0.5 seconds and measures 0.28 x 0.24 cm. This is a venous duplex using B-mode, color ASV posterior prox/mid calf is INCOMPETENT flow and spectral Doppler. for greater than 0.5 seconds and measures Exam performed in department. 0.38 x 0.32 cm. The exam was diagnostic. Patient was scanned in reverse Trendelenburg position during reflux assessment. VL/Venous Duplex US - Misbah Extrem Interpretation Summary Deep veins of the bilateral lower extremities are patent and compressible segme ntally. There is no evidence of bilateral lower extremity deep vein thrombosis. The bilateral great saphenous veins appear patent and compressible segmentally. Positive for reflux in the right saphenofemoral junction, great saphenous vein throughout, and accessory saphenous vein in the calf. Positive for reflux in the left saphenofemoral junction, great saphenous vein t hroughout, accessory saphenous vein in the calf, small saphenous vein, and calf licensing director. Ordering Physician: Nova Roman Referring Physician: Martinez Cox Performed By: Italo Weinstein RVT
== END | disposition home or self-care (01) ==
PROVIDERS: PCP Internal Medicine; Referring Provider Physician Assistant; Visit Provider Physician Assistant
DX: I83.813 Varicose veins of bilateral lower extremities with pain (principal)
CPT/HCPCS: 93970

== ENCOUNTER 2024-10-18 08:22 | Day surgery (SDC) | payer SELFPAY ==
[2024-10-17 06:54] VITALS: BMI 25.9
[2024-10-18 08:55] LABS: Internal QC Validated? YES +Cl - CLEAR BKGD
[2024-10-18 08:56] LABS: Pregnancy, Urine Negative Negative
--- NOTE | 2024-10-18 10:45 | HP.PCM_ITS ---
HPI - General HPI Narrative DELISA NGUYEN, is a 29 F who presents with painful left lower extremity varicose veins that remain symptomatic despite compression. She has left great saphenous reflux throughout and calf logistics account manager reflux. She presents for GSV ablation. [facility] Medical History Superficial varicosities No significant medical problems Home Medications ?Medication ?Instructions ?Recorded ?Last Taken ?Type multivitamin no.47-iron fum 27 1 cap PO DAILY pregnanc y 05/27/20 10/17/24 History mg-folate no.1 1 mg-dha 300 mg capsule (PNV-DHA) Allergy/AdvReac Type Severity Reaction Status Date / Time latex AdvReac Intermediate Rash Verified 07/24/24 15:06 Family History (Updated 07/24/24 @ 15:05 by Makenna Pacheco) Grandfather Colon cancer Other DVT (deep venous thrombosis) Surgical History S/P appendectomy Social History adopted: No household members: spouse and children housing: house number of children: 3 current occupational status: employed current occupation: [employer]- [employer] pets and animals: Yes pets and animals: dog(s) history of recent travel: Yes ([place]) out of state: Yes out of country: No sexually active: Yes Smoking Status: Never smoker second hand exposure: No alcohol intake: former details: not while substance use type: does not use well-balanced diet: daily or most days caffeine: No eating out: rarely or never during the past year weight has: remained stable what type of physical activity do you participate in: other details: JERRELL frequency: 3-4 times per week duration: 15-30 minutes/day jose/denominational: Orthodoxy seatbelt use: always do you feel safe at home: Yes additional social history: - [place] Self Employed ROS Constitutional Constitutional: Denies chills, fever(s), frequent falls, lethargy or weakness Eyes Eyes: Denies blind spots, change in vision or loss of vision ENT HEENT: Denies bleeding gums, hoarseness or sore throat Cardiovascular Cardiovascular: Denies abdominal pain, bluish discoloration of hand/feet, chest pain with activity, claudication, cold extremities, cyanosis, dyspnea on exertion, erythema on extremities, irregular heart rhythm, leg edema, leg ulcers, numbness in extremities or weakness in extremities Respiratory/Chest Respiratory/Chest: Denies cough, excessive phlegm production, shortness of breath at rest, shortness of breath with exertion or wheezing Gastrointestinal Gastrointestinal: Denies anorexia, change in stool character, constipation, di arrhea, melena or rectal bleeding Genitourinary Genitourinary: Denies dysuria or hematuria Musculoskeletal Musculoskeletal: Denies abnormal gait Integumentary Integumentary: Reports other Details: ; Denies erythema, non-healing lesions or wounds Neurologic Neurologic: Denies abnormal speech, focal weakness, headache(s), loss of vision, numbness, paresthesias or sensory deficit Hematologic/Lymphatic Hematologic/Lymphatic: Denies easy bleeding, easy bruising or lymphadenopathy Vital Signs Vital Signs Vital Signs: Weight Weight: 137 lb Body Mass Index (BMI) 25.9 Physical Exam Const alert, oriented x3, no apparent distress and healthy appearing General Appearance: cooperative; Negative for combative or lethargic Orientation / Consciousness: awake Exam Limitations: no limitations HEENT Head and Scalp: normocephalic and atraumatic Eyes EOMs intact bilaterally General Eye: normal appearance of both eyes Neck full ROM General: trachea midline Resp normal respiratory effort and no use of accessory muscles Effort and Inspection: Negative for labored, stridor or audible wheezes Cardio regular rate and regular rhythm Back/Spine Cervical Spine: cervical ROM normal Extremity full ROM, normal capillary refill and no clubbing, cyanosis or edema Skin no rashes or lesions noted and no wounds Neuro oriented x3, CN's II-XII intact bilaterally, no focal motor deficits and no sensory deficits noted Psych thought process normal, cooperative, affect normal, speech normal and ac tivity/motor behavior normal Results Lab / Micro Data Labs: Laboratory Results - last 24 hr 10/18/24 08:34: Urine Test Negative Assessment & Plan Assessment/Plan (1) Varicose veins of bilateral lower extremities with pain: PLAN: -left GSV RF ablation
--- NOTE | 2024-10-18 11:52 | PCM.OPRPT ---
Operative Report (Standard) Operative Information Date of Procedure: 10/18/24 Pre-Operative Diagnosis: varicose veins with pain, left lower extremity Post-Operative Diagnosis: same Surgery/Procedure Performed: radiofrequency ablation, left great saphenous vein ivory polisher: No Type of Anesthesia: Local, Sedation,Conscious and Tumescent Procedure Start Time: 11:00 Procedure Stop Time: 11:30 Select all DRAINS/GRAFTS/IMPLANTS that apply: None Estimated Blood Loss: 2 Specimen collected: No Description of surgery: HPI: Patient is a 29-year-old female with painful varicose veins of the left lower extremity which are refractory to compression therapy. She has reflux throughout the great saphenous vein and she is taken now for radiofrequency ablation. Description of procedure: Upon obtaining form consent and verification correct patient procedure and site patient taken the Freezer Tunnel Operator where she was positioned prepped and draped in you sterile fashion. Time was performed to count sedation administered Versed and fentanyl. Ultrasound used to evaluate the great saphenous vein throughout the thigh and calf and was found to be of adequate caliber for access in the mid calf and continues without significant tortuosity up to the saphenofemoral junction. Skin overlying the saphenous vein in the mid calf was then anesthetized with 1% lidocaine the vessel accessed under ultrasound guidance with a micropuncture needle wire. This was then exchanged for the 7 Tongan ablation sheath which was advanced without resistance. Through the sheath the radiofrequency ablation catheter was advanced under ultrasound guidance up to the saphenofemoral junction. It was then positioned 3 cm inferior to the junction as measured in longitudinal ultrasound view. Next tumescent solution was instilled along the great saphenous vein from the access site up to the saphenofemoral junction. The ablation catheter was then activated sequentially along the length of the treatment zone from the position inferior to the saphenofemoral junction down to the sheath. Upon completion the sheath and catheter withdrawn a minute pressure held till hemostasis was obtained. Dry sterile dressing and Julián wrap were then applied the patient was taken to the recovery area with plan discharged to home. Surgical Findings: See above Complications Complications: No
== END 2024-10-18 12:43 | disposition home or self-care (01) ==
PROVIDERS: PCP Internal Medicine; Referring Provider Surgery Trauma Surgery; Visit Provider Surgery Trauma Surgery
DX: I83.813 Varicose veins of bilateral lower extremities with pain (principal)
CPT/HCPCS: 36475; 81025; 99152; 99153; C1888; C1894

== ENCOUNTER → 2024-10-22 | Outpatient (CLI) | payer SELFPAY ==
--- NOTE | 2024-10-22 10:04 | VDLE_ITS ---
Reason For Study Reason For Study: Pain LLE, S/P GSV Ablation RIGHT LEFT CFV is compressible, spontaneous, phasic, competent CFV is compressible, spontaneous, phasic, competent, and demonstrates normal augmentation. and demonstrates normal augmentation. Procedure FV is compressible, spontaneous, phasic, competent This is a venous duplex using B-mode, color flow and and demonstrates normal augmentation. spectral Doppler. POP V is compressible, spontaneous, phasic, competent Exam performed in department. and demonstrates normal augmentation. A preliminary report was called and/or faxed to T/P Trunk is compressible. Nova KEMP. PTV is compressible. LT PerV is compressible. Lt GSV from junction to prox calf is occluded s/p ablation, 1.51 cm from junction Lt GSV is compressible mid/distal calf Prox calf varicosity is partially compressible. VL/Venous Duplex US, Unilateral Interpretation Summary Deep veins of the left lower extremity are patent and compressible segmentally. There is no evidence of left lower extremity deep vein thrombosis. Left great saphenous vein occluded consistent with recent ablation. Ordering Physician: Nova Roman Referring Physician: Martinez Cox Performed By: Rosa Isela Carter, CHIRAG, RVT
== END | disposition home or self-care (01) ==
PROVIDERS: PCP Internal Medicine; Referring Provider Surgery Trauma Surgery; Visit Provider Surgery Trauma Surgery
DX: I83.892 Varicose veins of left lower extremity with other complications (principal)
CPT/HCPCS: 93971